=== PATIENT | female | born 1950 | race Native Hawaiian/Other Pacific Islander ===

== ENCOUNTER 2018-10-19 10:58 | Outpatient (CLI) | payer OTHER | END 2018-10-19 20:02 | disposition home or self-care (01) | LOC: RAD 10:58 | DX: M25.559 Pain in unspecified hip (principal) ==

== ENCOUNTER 2021-04-06 09:52 | Outpatient (CLI) | payer OTHER | END 2021-04-06 23:06 | disposition home or self-care (01) | LOC: MAMMO 09:52 | PROVIDERS: ATTEND Nurse Practitioner | DX: Z12.31 Encounter for screening mammogram for malignant neoplasm of breast (principal) ==

== ENCOUNTER 2022-09-23 09:21 | Outpatient (CLI) | payer OTHER | END 2022-09-23 19:00 | disposition home or self-care (01) | LOC: MAMMO 09:21 | PROVIDERS: ATTEND Nurse Practitioner Family | DX: Z12.31 Encounter for screening mammogram for malignant neoplasm of breast (principal) ==